=== PATIENT | male | born 1950 | race Caucasian/White ===

== ENCOUNTER 2021-05-28 03:55 | Observation (INO) | payer MEDICARE, BC ==
[2021-05-28] MEDS ORDERED: Sodium Chloride 0.9% 2.5 ML Syringe FLUSH PRN (04:06)
[2021-05-28] MEDS ORDERED: Sodium Chloride 0.9% 1,000 ML IV ONE (04:06)
[2021-05-28] MEDS ORDERED: Sodium Chloride 0.9% 10 ML Syringe FLUSH PRN (04:06)
[2021-05-28] MEDS ORDERED: Meclizine 25 MG Tab PO ONE (04:06)
[2021-05-28] MEDS ORDERED: Prochlorperazine 10 MG/2 ML SDV IVPUSH ONE (04:08)
--- NOTE | 2021-05-28 04:11 | EDM.PDOC ---
ED HPI GENERAL MEDICAL PROBLEM - General Chief Complaint: Gastrointestinal Problem Stated Complaint: DIZZINESS Time Seen by Provider: 05/28/21 04:06 Source of Information: Reports: Patient - History of Present Illness INITIAL COMMENTS - FREE TEXT/NARRATIVE: HISTORY AND PHYSICAL: History of present illness: This is a 70-year-old gentleman with a history significant hypertension, diabetes, status post gastric bypass, negative history of liver, lung, kidney, coronary disease, strokes in the past who presents ER today secondary to dizziness with vertigo that started at 8 PM last night prior to going to bed. Patient reports that he woke up today and felt extremely dizzy and off-balance who came to the ER. Patient denies any weakness to his upper or lower extremities. Patient has a facial asymmetries. Patient denies any slurring of his speech. Patient denies any recent fevers, shakes, chills, nausea, vomiting, diarrhea, dysuria, frequency, urgency, chest pain. Patient has any shortness of breath. Patient denies any melena or bright red blood per rectum. Review of systems: As per history of present illness and below otherwise all systems reviewed and negative. Past medical history: As per history of present illness and as reviewed below otherwise noncontributory. Surgical history: As per history of present illness and as reviewed below otherwise noncontributory. Social history: No reported history of drug abuse. Family history: As per history of present illness and as reviewed below otherwise noncontributory. Physical exam: This patient was seen and evaluated during the 2019 SARS-CoV-2 novel coronavirus pandemic period. Community viral transmission is ongoing at time of this encounter and the emergency department is operating under pandemic response procedures. Constitutional: Patient is oriented to person, place, and time. Appears well- developed and well-nourished. No distress. HEENT: Moist mucous membranes Head: Normocephalic and atraumatic Eyes: Right eye exhibits no discharge. Left eye exhibits no discharge. No scleral icterus Neck: Normal range of motion. No tracheal deviation present. Cardiovascular: Normal rate and regular rhythm. Pulmonary: Effort normal, no respiratory distress. Abdominal: No distention Musculoskeletal: Normal range of motion Neurologic: Alert and oriented to person, place and time. Skin: [place], warm and dry. Psychiatric: Normal mood and affect. Behavior is normal. Judgment and thought content normal. Nursing note and vital signs have been reviewed Neuro: A&Ox3. Cranial nerves II-XII grossly intact, 5/5 strength to bilateral upper and lower extremities, sensation intact to bilateral upper and lower extremities, no nystagmus, PERRLA, EOMI, normal speech, proprioception intact to bilateral lower extremities, normal finger to nose test, gait normal Patient has dizziness when I lay him flat and turn his head. Patient has no nystagmus. Diagnostics: CBC, CMP, urinalysis, EKG, troponin, CT of the head Therapeutics: NSS x1 L, meclizine, Compazine Assessment and plan: 70-year-old who presents ER today with vertigo that started 8 PM. Patient denies any other symptomatology at this time. Patient cerebellar exam is normal in the ED although I have not tried to ambulate him as of yet. Patient will receive Compazine and meclizine to help him treat vertigo. Patient has been monitored in the ED. Patient still extremely vertiginous. I did attempt to walk the patient in the ED any almost fell twice. Patient has no nystagmus. Patient has normal [id number] exam. Patient has normal rapid alternating motion. Patient has an abnormal Romberg and abnormal gait. Given patient's gait instability, his vertigo, patient will need to be admitted for safety and for monitoring of his gait and dizziness. CT scan shows no acute stroke or bleed. Discussed case with Dr. Patterson who is agreed to accept patient for observation. Definitive disposition and diagnosis as appropriate pending reevaluation and review of above. - Related Data Allergies Allergy/AdvReac Type Severity Reaction Status Date / Time No Known Allergies Allergy Verified 05/28/21 03:59 Home Meds: Home Meds Testosterone 05/28/21 [History] atorvaSTATin [Lipitor] 05/28/21 [History] lisinopriL [Lisinopril] 05/28/21 [History] metFORMIN [Glucophage XR] 05/28/21 [History] ED ROS GENERAL - Review of Systems Review Of Systems: See Below ED EXAM, GENERAL - Physical Exam Exam: See Below #1 Interpretation EKG Date: 05/28/21 Time: 03:52 EKG Interpretation Comments: EKG: As interpreted by ER physician: Glenn: Nonspecific ST-T wave abnormalities Normal axis No evidence of ST elevation AL Normal sinus rhythm heart rate of 75 Course - Vital Signs Last Recorded V/S: Last Vital Signs Temp 97.5 F 05/28/21 04:02 Pulse 75 05/28/21 04:02 Resp 18 05/28/21 04:02 BP 124/75 05/28/21 04:02 Pulse Ox 95 05/28/21 04:02 - Orders/Labs/Meds Orders: Active Orders 24 hr Category Date Time Status Patient Status [ADT] Routine ADT 05/28/21 05:13 Ordered EKG Documentation Completion [RC] AM Care 05/28/21 04:06 Active CORONAVIRUS COVID-19 WENDY [MOLEC] Stat Lab 05/28/21 04:35 Received UA W/MARTHA RFLX IF INDICATED [URIN] Stat Lab 05/28/21 04:07 Ordered Sodium Chloride 0.9% [Saline Flush] Med 05/28/21 04:06 Active 10 ml FLUSH ASDIRECTED PRN Sodium Chloride 0.9% [Saline Flush] Med 05/28/21 04:06 Active 2.5 ml FLUSH ASDIRECTED PRN Saline Lock Insert [OM.PC] Stat Oth 05/28/21 04:06 Ordered Medication Orders Sodium Chloride (Sodium Chloride 0.9% 10 Ml Syringe) 10 ml FLUSH ASDIRECTED PRN PRN Reason: Keep Vein Open Last Admin: 05/28/21 04:16 Dose: 10 ml Documented by: GOSIA Sodium Chloride (Sodium Chloride 0.9% 2.5 Ml Syringe) 2.5 ml FLUSH ASDIRECTED PRN PRN Reason: Keep Vein Open Last Admin: 05/28/21 04:24 Dose: 2.5 ml Documented by: GOSIA Labs: Laboratory Tests 05/28/21 05/28/21 Range/Units 04:22 04:22 WBC 8.10 (4.0-11.0) K/uL RBC 4.03 L (4.50-5.90) M/uL Hgb 12.3 L (13.0-17.0) g/dL Hct 37.6 L (38.0-50.0) % MCV 93.3 (80.0-98.0) fL MCH 30.5 (27.0-32.0) pg MCHC 32.7 (31.0-37.0) g/dL RDW Std Deviation 47.1 (28.0-62.0) fl RDW Coeff of Jasmina 14 (11.0-15.0) % Plt Count 234 (150-400) K/uL MPV 10.10 (7.40-12.00) fL Neut % (Auto) 76.0 (48.0-80.0) % Lymph % (Auto) 14.7 L (16.0-40.0) % [place] % (Auto) 7.8 (0.0-15.0) % Eos % (Auto) 1.4 (0.0-7.0) % Baso % (Auto) 0.1 (0.0-1.5) % Neut # (Auto) 6.2 H (1.4-5.7) K/uL Lymph # (Auto) 1.2 (0.6-2.4) K/uL [place] # (Auto) 0.6 (0.0-0.8) K/uL Eos # (Auto) 0.1 (0.0-0.7) K/uL Baso # (Auto) 0.0 (0.0-0.1) K/uL Nucleated RBC % 0.0 /100WBC Nucleated RBCs # 0 K/uL Sodium 140 (136-148) mmol/L Potassium 4.7 (3.5-5.1) mmol/L Chloride 108 H (98-107) mmol/L Carbon Dioxide 20.3 L (21.0-32.0) mmol/L BUN 19 H (7.0-18.0) mg/dL Creatinine 1.1 (0.8-1.3) mg/dL Est Cr Clr Drug Dosing 81.00 mL/min Estimated GFR (MDRD) > 60.0 ml/min Glucose 207 H (74-106) mg/dL Calcium 8.2 L (8.5-10.1) mg/dL Magnesium 1.7 L (1.8-2.4) mg/dL Total Bilirubin 0.2 (0.2-1.0) mg/dL AST 13 L (15-37) IU/L ALT 21 (14-63) IU/L Alkaline Phosphatase 88 (46-116) U/L Troponin I < 0.050 (0.000-0.056) ng/mL Total Protein 6.2 L (6.4-8.2) g/dL Albumin 2.8 L (3.4-5.0) g/dL Globulin 3.4 (2.6-4.0) g/dL Albumin/Globulin Ratio 0.8 L (0.9-1.6) Meds: Medications Generic Name Dose Route Start Last Admin Trade Name Freq PRN Reason Stop Dose Admin Sodium Chloride 10 ml 05/28/21 04:06 05/28/21 04:16 Sodium Chloride 0.9% 10 Ml Syringe FLUSH 10 ml ASDIRECTED PRN Administration Keep Vein Open Sodium Chloride 2.5 ml 05/28/21 04:06 05/28/21 04:24 Sodium Chloride 0.9% 2.5 Ml Syringe FLUSH 2.5 ml ASDIRECTED PRN Administration Keep Vein Open Discontinued Medications Generic Name Dose Route Start Last Admin Trade Name Freq PRN Reason Stop Dose Admin Sodium Chloride 1,000 mls @ 999 mls/hr 05/28/21 04:06 05/28/21 04:17 Normal Saline IV 05/28/21 05:06 999 mls/hr .Bolus ONE Administration Meclizine HCl 50 mg 05/28/21 04:06 05/28/21 04:14 Meclizine 25 Mg Tab PO 05/28/21 04:07 50 mg ONETIME ONE Administration Prochlorperazine Edisylate 5 mg 05/28/21 04:08 05/28/21 04:15 Prochlorperazine 10 Mg/2 Ml Sdv IVPUSH 05/28/21 04:09 5 mg ONETIME ONE Administration Departure - Departure Time of Disposition: 05:16 Disposition: Home, Self-Care 01 Condition: Good Clinical Impression: Vertigo - Discharge Information Forms: ED Department Discharge Sepsis Event Note (ED) - Evaluation Sepsis Screening Result: No Definite Risk - Focused Exam Vital Signs: Vital Signs Temp Pulse Resp BP Pulse Ox 05/28/21 04:02 97.5 F 75 18 124/75 95 - My Orders Last 24 Hours: My Active Orders 05/28/21 04:06 EKG Documentation Completion [RC] AM Sodium Chloride 0.9% [Saline Flush] 10 ml FLUSH ASDIRECTED PRN Sodium Chloride 0.9% [Saline Flush] 2.5 ml FLUSH ASDIRECTED PRN Saline Lock Insert [OM.PC] Stat 05/28/21 04:07 UA W/MARTHA RFLX IF INDICATED [URIN] Stat 05/28/21 04:35 CORONAVIRUS COVID-19 WENDY [MOLEC] Stat 05/28/21 05:13 Patient Status [ADT] Routine - Assessment/Plan Last 24 Hours: My Active Orders 05/28/21 04:06 EKG Documentation Completion [RC] AM Sodium Chloride 0.9% [Saline Flush] 10 ml FLUSH ASDIRECTED PRN Sodium Chloride 0.9% [Saline Flush] 2.5 ml FLUSH ASDIRECTED PRN Saline Lock Insert [OM.PC] Stat 05/28/21 04:07 UA W/MARTHA RFLX IF INDICATED [URIN] Stat 05/28/21 04:35 CORONAVIRUS COVID-19 WENDY [MOLEC] Stat 05/28/21 05:13 Patient Status [ADT] Routine
--- NOTE | 2021-05-28 04:49 | CR ---
INDICATION: Dizziness, vertigo TECHNIQUE: Chest radiograph 1 view COMPARISON: None FINDINGS: The sensitivity and specificity of the exam are moderately limited by the patient`s body habitus. Mediastinum: The mediastinum is normal in appearance. The heart silhouette is normal in size and morphology. Lung: Mild bibasilar reticulonodular interstitial opacities are present. No sign of pleural effusion seen. No pneumothorax is identified. Bone and Soft tissue: Unremarkable for age. IMPRESSION: 1. Mild bibasilar reticulonodular interstitial opacities are present. These findings can be seen with atelectasis and/or atypical pneumonia. Dictated by Sj Hunt MD @ 05/28/2021 4:48:03 AM Dictated by: Sj Hunt MD @ 05/28/2021 04:48:07 (Electronically Signed)
[2021-05-28 04:53] LABS: BLOOD UREA NITROGEN,BUN 19 mg/dL (7.0-18.0); CARBON DIOXIDE,CO2 20.3 mmol/L (21.0-32.0); CHLORIDE,CL 108 mmol/L (98-107); GLUCOSE RANDOM 207 mg/dL (74-106); POTASSIUM,K 4.7 mmol/L (3.5-5.1); SODIUM,NA 140 mmol/L (136-148)
--- NOTE | 2021-05-28 05:02 | CT ---
INDICATION: Dizziness, vertigo TECHNIQUE: CT Head without i.v. contrast. Coronal and sagittal reformats were obtained. COMPARISON: None FINDINGS: CSF space: Unremarkable for age. Brain: No evidence of mass, acute infarction or hemorrhage is seen. No mass-effect or midline shift is seen. Mild diffuse cortical atrophy is noted. The brain parenchyma is otherwise normal in appearance with preservation of the pope-white matter junction. Calvarium: Mucosal thickening within a diminutive right maxillary sinus is noted. Mild mucosal thickening noted in the floor of the left maxillary sinus and ethmoid sinuses. The mastoid air cells are clear. The visualized orbits are grossly unremarkable. The calvarium is unremarkable in appearance with no fractures identified. IMPRESSION: 1. No evidence of acute infarction, intracranial hemorrhage, or mass-effect seen. Dictated by Sj Hunt MD @ 05/28/2021 5:01:59 AM Please note that all CT scans at this facility use dose modulation, iterative reconstruction, and/or weight-based dosing when appropriate to reduce radiation dose to as low as reasonably achievable. Dictated by: Sj Hunt MD @ 05/28/2021 05:02:02 (Electronically Signed)
[2021-05-28] MEDS ORDERED: Glucagon,Human Recombinant 1 MG Vial IM PRN (10:45)
[2021-05-28] MEDS ORDERED: 50% Dextrose in Water 50 ML Syringe IVPUSH PRN (10:45)
[2021-05-28] MEDS: Insulin Aspart 100 Units/ML 3 ML Pen SUBCUT SCH ×2 (15:11→17:30)
[2021-05-29] MEDS ORDERED: Docusate Sodium 100 MG Cap PO PRN (08:05)
[2021-05-29] MEDS ORDERED: Ondansetron 4 MG/2 ML SDV IVPUSH PRN (08:05)
[2021-05-29] MEDS ORDERED: Acetaminophen 325 MG Tab PO PRN (08:05)
[2021-05-29] MEDS: Insulin Aspart 100 Units/ML 3 ML Pen SUBCUT SCH (09:28)
--- NOTE | 2021-05-29 11:47 | PCM.HP.2 ---
H&P History of Present Illness - General Date of Service: 05/28/21 Admit Problem/Dx: Admission Diagnosis/Problem Admission Diagnosis/Problem Vertigo - History of Present Illness Initial Comments - Free Text/Narative: 70-year-old gentleman with a history significant hypertension and diabetes who last night before going to be felt dizzy. He felt as if the bed was slant from side to side. He decided to go to sleep to see if it would go away. He then woke up later and the room was spinning. He was unable to get up out of bed. He did dry heave. He denies any shortness of breath or chest pain. He was brought to the ED via EMS. Vital signs, lab work and CT head were unremarkable. He received meclizine. By the time I saw him his symptoms had improved - Related Data Allergies/Adverse Reactions: Allergies Allergy/AdvReac Type Severity Reaction Status Date / Time No Known Allergies Allergy Verified 05/28/21 03:59 Home Medications: Home Meds Gabapentin [Neurontin] 05/28/21 [History] Lisinopril/Hydrochlorothiazide [Lisinopril-HCTZ 10-12.5 MG] 10 - 12.5 mg PO DAILY 05/28/21 [History] Omeprazole 20 mg PO BIDAC 05/28/21 [History] Pentoxifylline [TRENtal] 400 mg PO TID 05/28/21 [History] Sildenafil [Revatio] 20 - 40 mg PO .PRIOR TO INTERCOURS PRN 05/28/21 [History] Testosterone 1 applic TOP DAILY 05/28/21 [History] atorvaSTATin [Lipitor] 40 mg PO BEDTIME 05/28/21 [History] buPROPion HCL [Bupropion Xl] 300 mg PO BEDTIME 05/28/21 [History] glipiZIDE [Glipizide ER] 5 mg PO QPM 05/28/21 [History] glipiZIDE [Glipizide ER] 10 mg PO DAILY 05/28/21 [History] metFORMIN [Glucophage XR] 1,000 mg PO BIDMEALS 05/28/21 [History] Meclizine [Antivert] 25 mg PO TID PRN #20 tab 05/29/21 [Rx] Past Medical History HEENT History: Reports: Hard of Hearing Cardiovascular History: Reports: High Cholesterol, Hypertension Respiratory History: Reports: Sleep Apnea Gastrointestinal History: Reports: Chronic Diarrhea, GERD, GI Bleed Musculoskeletal History: Reports: Fracture Other Musculoskeletal History: Right Leg Neurological History: Reports: Neuropathy, Diabetic Psychiatric History: Reports: Anxiety, Depression Endocrine/Metabolic History: Reports: Diabetes, Type II Hematologic History: Reports: Blood Transfusion(s) - Infectious Disease History Infectious Disease History: Reports: Chicken Pox - Past Surgical History HEENT Surgical History: Reports: Tonsillectomy Cardiovascular Surgical History: Reports: None GI Surgical History: Reports: Bariatric Procedure Other GI Surgeries/Procedures: gastric bypass Other Musculoskeletal Surgeries/Procedures:: Surgery to right leg Social & Family History - Family History Family Medical History: No Pertinent Family History - Tobacco Use Tobacco Use Status *Q: Never Tobacco User Second Hand Smoke Exposure: No - Caffeine Use Caffeine Use: Reports: Soda - Recreational Drug Use Recreational Drug Use: No H&P Review of Systems - Review of Systems: Review Of Systems: Comprehensive ROS is negative, except as noted in HPI. Exam - Exam Exam: See Below - Vital Signs Vital Signs: Last Vital Signs Temp 37.1 C 05/29/21 09:24 Pulse 80 05/29/21 09:24 Resp 16 05/29/21 09:24 BP 127/65 05/29/21 09:24 Pulse Ox 96 05/29/21 09:24 Weight: 117.934 kg - Exam General: Alert, Oriented HEENT: Conjunctiva Clear, EOMI, Hearing Intact, Mucosa Moist & [place], Posterior Pharynx Clear Neck: Supple Lungs: Clear to Auscultation, Normal Respiratory Effort Cardiovascular: Regular Rate, Regular Rhythm GI/Abdominal Exam: Normal Bowel Sounds, Soft, Non-Tender Extremities: Non-Tender, No Pedal Edema Skin: Warm, Dry, Intact Neurological: Cranial Nerves Intact, Reflexes Equal Bilateral, Strength Equal Bilateral, Normal Speech, Normal Tone, Sensation Intact, Other (normal finger to nose pointing, unsteady gait, needs to hold onto bed and wall to steady himself at times. while standing able to remain steady with push and eyes closed, no nystagmus noted). No: Focal Deficit - Patient Data Lab Results Last 24 hrs: Laboratory Results - last 24 hr 05/28/21 05/28/21 05/28/21 Range/Units 11:45 11:59 17:09 POC Glucose 136 H 302 H (70-99) mg/dL Urine Color YELLOW Urine Appearance HAZY Urine pH 6.0 (5.0-8.0) Ur Specific Umbarger 1.020 (1.001-1.035) Urine Protein NEGATIVE (NEGATIVE) mg/dL Urine Glucose (UA) NEGATIVE (NEGATIVE) mg/dL Urine Ketones NEGATIVE (NEGATIVE) mg/dL Urine Occult Blood NEGATIVE (NEGATIVE) Urine Nitrite NEGATIVE (NEGATIVE) Urine Bilirubin NEGATIVE (NEGATIVE) Urine Urobilinogen 1.0 (<2.0) EU/dL Ur Leukocyte Esterase NEGATIVE (NEGATIVE) 05/29/21 Range/Units 06:30 POC Glucose 169 H (70-99) mg/dL Urine Color Urine Appearance Urine pH (5.0-8.0) Ur Specific Umbarger (1.001-1.035) Urine Protein (NEGATIVE) mg/dL Urine Glucose (UA) (NEGATIVE) mg/dL Urine Ketones (NEGATIVE) mg/dL Urine Occult Blood (NEGATIVE) Urine Nitrite (NEGATIVE) Urine Bilirubin (NEGATIVE) Urine Urobilinogen (<2.0) EU/dL Ur Leukocyte Esterase (NEGATIVE) Result Diagrams: 05/28/21 04:22 05/28/21 04:22 Sepsis Event Note - Evaluation Sepsis Screening Result: No Definite Risk - Focused Exam Vital Signs: Vital Signs Temp Pulse Resp BP Pulse Ox 05/29/21 09:24 37.1 C 80 16 127/65 96 05/29/21 03:25 36.2 C 73 18 122/63 95 - Problem List (1) Vertigo SNOMED Code(s): 811761295 ICD Code: R42 - DIZZINESS AND GIDDINESS Status: Acute Current Visit: No Problem List Initiated/Reviewed/Updated: Yes Orders Last 24hrs: Active Orders 24 hr Category Date Time Status Blood Glucose Check, Bedside [RC] TIDAC Care 05/28/21 10:45 Active Intake and Output [RC] Q12H Care 05/29/21 08:06 Active Oxygen Therapy [RC] PRN Care 05/29/21 08:05 Active Ready for Discharge [RC] PER UNIT ROUTINE Care 05/29/21 10:17 Active Up With Assistance [RC] ASDIRECTED Care 05/29/21 08:05 Active VTE/DVT Education [RC] PER UNIT ROUTINE Care 05/29/21 08:05 Active Vital Signs [RC] Q4H Care 05/29/21 08:05 Active PT Evaluation and Treatment [CONS] Routine Cons 05/28/21 10:46 Active [place] [employer] Diet [DIET] Diet 05/28/21 Lunch Active Acetaminophen [TylenoL] Med 05/29/21 08:05 Active 650 mg PO Q4H PRN Dextrose 50% in Water Med 05/28/21 10:45 Active 50 ml IVPUSH ASDIRECTED PRN Docusate Sodium [Colace] Med 05/29/21 08:05 Active 100 mg PO BID PRN Glucagon,Human Recombinant [GlucaGen] Med 05/28/21 10:45 Active 1 mg IM ASDIRECTED PRN Insulin Aspart [NovoLOG] Med 05/28/21 11:30 Active See Protocol SUBCUT TIDAC Ondansetron [Zofran] Med 05/29/21 08:05 Active 4 mg IVPUSH Q4H PRN Medication Orders Acetaminophen (Acetaminophen 325 Mg Tab) 650 mg PO Q4H PRN PRN Reason: Pain (Mild 1-3)/fever Dextrose/Water (50% Dextrose In Water 50 Ml Syringe) 50 ml IVPUSH ASDIRECTED PRN PRN Reason: Hypoglycemia Docusate Sodium (Docusate Sodium 100 Mg Cap) 100 mg PO BID PRN PRN Reason: Constipation Glucagon (Glucagon,Human Recombinant 1 Mg Vial) 1 mg IM ASDIRECTED PRN PRN Reason: Hypoglycemia Insulin Aspart (Insulin Aspart 100 Units/Ml 3 Ml Pen) 0 unit SUBCUT TIDAC [facility]; Protocol Last Admin: 05/29/21 09:28 Dose: 1 unit Documented by: Admin: 05/28/21 17:30 Dose: 4 unit Documented by: Admin: 05/28/21 15:11 Dose: Not Given Documented by: FAZAL Ondansetron HCl (Ondansetron 4 Mg/2 Ml Sdv) 4 mg IVPUSH Q4H PRN PRN Reason: Nausea Sodium Chloride (Sodium Chloride 0.9% 10 Ml Syringe) 10 ml FLUSH ASDIRECTED PRN PRN Reason: Keep Vein Open Last Admin: 05/28/21 04:16 Dose: 10 ml Documented by: GOSIA Sodium Chloride (Sodium Chloride 0.9% 2.5 Ml Syringe) 2.5 ml FLUSH ASDIRECTED PRN PRN Reason: Keep Vein Open Last Admin: 05/28/21 04:24 Dose: 2.5 ml Documented by: JAOMAS Assessment/Plan Comment:: 70 yo male admitted with vertigo. I suspect BPPV. We will consult physical therapy.
--- NOTE | 2021-05-29 11:52 | PCM.DCSUM1 ---
Discharge Summary - Discharge Data Discharge Date: 05/29/21 Discharge Disposition: Home, Self-Care 01 Condition: Stable - Referral to Home Health Primary Care Physician: PCP None - Discharge Diagnosis/Problem(s) (1) Vertigo SNOMED Code(s): 599793265 ICD Code: R42 - DIZZINESS AND GIDDINESS Status: Acute Current Visit: No - Patient Summary/Data Consults: Consultations 05/28/21 10:46 PT Evaluation and Treatment [CONS] Routine Hospital Course: 70-year-old gentleman with a history significant hypertension and diabetes who was admitted for Vertigo. He presented with one day history of dizziness which he described as the room spinning. He was admitted due the significant symptoms limited his ability to ambulate. He was treated with meclizine. Labwork and CT scan of the head was unremarkable. His symptoms did improve. Physical therapy was consulted. Patient is ready for discharge. He is to follow up with his primary care provider. - Patient Instructions Diet: Regular Diet as Tolerated Activity: No Strenuous Activities, Rest and Relax Today Showering/Bathing: May Shower Notify Provider of: Fever, Increased Pain, Swelling and Redness, Drainage, Nausea and/or Vomiting - Discharge Plan *PRESCRIPTION DRUG MONITORING PROGRAM REVIEWED*: Not Applicable *COPY OF PRESCRIPTION DRUG MONITORING REPORT IN PATIENT SHAD: Not Applicable Prescriptions/Med Rec: Meclizine [Antivert] 25 mg PO TID PRN #20 tab PRN Reason: Dizziness Home Medications: Home Meds Gabapentin [Neurontin] 05/28/21 [History] Lisinopril/Hydrochlorothiazide [Lisinopril-HCTZ 10-12.5 MG] 10 - 12.5 mg PO DAILY 05/28/21 [History] Omeprazole 20 mg PO BIDAC 05/28/21 [History] Pentoxifylline [TRENtal] 400 mg PO TID 05/28/21 [History] Sildenafil [Revatio] 20 - 40 mg PO .PRIOR TO INTERCOURS PRN 05/28/21 [History] Testosterone 1 applic TOP DAILY 05/28/21 [History] atorvaSTATin [Lipitor] 40 mg PO BEDTIME 05/28/21 [History] buPROPion HCL [Bupropion Xl] 300 mg PO BEDTIME 05/28/21 [History] glipiZIDE [Glipizide ER] 5 mg PO QPM 05/28/21 [History] glipiZIDE [Glipizide ER] 10 mg PO DAILY 05/28/21 [History] metFORMIN [Glucophage XR] 1,000 mg PO BIDMEALS 05/28/21 [History] Meclizine [Antivert] 25 mg PO TID PRN #20 tab 05/29/21 [Rx] Oxygen Therapy Mode: Room Air Patient Handouts: Vertigo, [id number] Referrals: PCP,None [Primary Care Provider] - - Discharge Summary/Plan Comment DC Time >30 min.: No Total # of Minutes for Discharge Time: 15 - Patient Data Vitals - Most Recent: Last Vital Signs Temp 37.1 C 05/29/21 09:24 Pulse 80 05/29/21 09:24 Resp 16 05/29/21 09:24 BP 127/65 05/29/21 09:24 Pulse Ox 96 05/29/21 09:24 Weight - Most Recent: 117.934 kg I&O - Last 24 hours: Intake & Output 05/28/21 05/29/21 05/29/21 22:59 06:59 14:59 Intake Total 250 300 320 Output Total 975 400 375 Balance -725 -100 -55 Lab Results - Last 24 hrs: Laboratory Results - last 24 hr 05/28/21 05/28/21 05/28/21 Range/Units 11:45 11:59 17:09 POC Glucose 136 H 302 H (70-99) mg/dL Urine Color YELLOW Urine Appearance HAZY Urine pH 6.0 (5.0-8.0) Ur Specific [place] 1.020 (1.001-1.035) Urine Protein NEGATIVE (NEGATIVE) mg/dL Urine Glucose (UA) NEGATIVE (NEGATIVE) mg/dL Urine Ketones NEGATIVE (NEGATIVE) mg/dL Urine Occult Blood NEGATIVE (NEGATIVE) Urine Nitrite NEGATIVE (NEGATIVE) Urine Bilirubin NEGATIVE (NEGATIVE) Urine Urobilinogen 1.0 (<2.0) EU/dL Ur Leukocyte Esterase NEGATIVE (NEGATIVE) 05/29/21 Range/Units 06:30 POC Glucose 169 H (70-99) mg/dL Urine Color Urine Appearance Urine pH (5.0-8.0) Ur Specific [place] (1.001-1.035) Urine Protein (NEGATIVE) mg/dL Urine Glucose (UA) (NEGATIVE) mg/dL Urine Ketones (NEGATIVE) mg/dL Urine Occult Blood (NEGATIVE) Urine Nitrite (NEGATIVE) Urine Bilirubin (NEGATIVE) Urine Urobilinogen (<2.0) EU/dL Ur Leukocyte Esterase (NEGATIVE) Med Orders - Current: Current Medications Discontinued Medications Acetaminophen (Acetaminophen 325 Mg Tab) 650 mg PO Q4H PRN PRN Reason: Pain (Mild 1-3)/fever Dextrose/Water (50% Dextrose In Water 50 Ml Syringe) 50 ml IVPUSH ASDIRECTED PRN PRN Reason: Hypoglycemia Docusate Sodium (Docusate Sodium 100 Mg Cap) 100 mg PO BID PRN PRN Reason: Constipation Glucagon (Glucagon,Human Recombinant 1 Mg Vial) 1 mg IM ASDIRECTED PRN PRN Reason: Hypoglycemia Sodium Chloride (Normal Saline) 1,000 mls @ 999 mls/hr IV .Bolus ONE Stop: 05/28/21 05:06 Last Admin: 05/28/21 04:17 Dose: 999 mls/hr Documented by: Insulin Aspart (Insulin Aspart 100 Units/Ml 3 Ml Pen) 0 unit SUBCUT [facility]; Protocol Last Admin: 05/29/21 09:28 Dose: 1 unit Documented by: Meclizine HCl (Meclizine 25 Mg Tab) 50 mg PO ONETIME ONE Stop: 05/28/21 04:07 Last Admin: 05/28/21 04:14 Dose: 50 mg Documented by: Ondansetron HCl (Ondansetron 4 Mg/2 Ml Sdv) 4 mg IVPUSH Q4H PRN PRN Reason: Nausea Prochlorperazine Edisylate (Prochlorperazine 10 Mg/2 Ml Sdv) 5 mg IVPUSH ONETIME ONE Stop: 05/28/21 04:09 Last Admin: 05/28/21 04:15 Dose: 5 mg Documented by: Sodium Chloride (Sodium Chloride 0.9% 10 Ml Syringe) 10 ml FLUSH ASDIRECTED PRN PRN Reason: Keep Vein Open Last Admin: 05/28/21 04:16 Dose: 10 ml Documented by: Sodium Chloride (Sodium Chloride 0.9% 2.5 Ml Syringe) 2.5 ml FLUSH ASDIRECTED PRN PRN Reason: Keep Vein Open Last Admin: 05/28/21 04:24 Dose: 2.5 ml Documented by:
== END 2021-05-29 11:30 | disposition home or self-care (01) ==
LOC: MW.ED 03:55 → MW.MS 05:13
PROVIDERS: ADMIT Internal Medicine; ATTEND Internal Medicine
DX: R42 Dizziness and giddiness (principal); I10 Essential (primary) hypertension; E78.00 Pure hypercholesterolemia, unspecified; E11.9 Type 2 diabetes mellitus without complications; Z79.899 Other long term (current) drug therapy; Z01.812 Encounter for preprocedural laboratory examination; Z20.822 Contact with and (suspected) exposure to COVID-19
CPT/HCPCS: 36415; 70450; 71045; 80053; 81003; 82947; 83735; 84484; 85025; 93005; 96374; 97112; 97161; 99285; A9270; G0378; J0780; J1815; J7030; U0002